=== PATIENT | male | born 1965 | race Caucasian/White ===

== ENCOUNTER → 2017-08-11 | Outpatient (CLI) | payer MEDICARE, OTHER ==
[2017-08-11 16:39] LABS: Blood Urea Nitrogen 13 mg/dL (9-20); Non-African American GFR(MDRD) >60 (>60 ml/min/1.73 sqM)
--- NOTE | 2017-08-11 21:49 | CT ---
EXAMINATION TYPE: CT chest w con DATE OF EXAM: 08/11/2017 COMPARISON: NONE HISTORY: Patient complains of shortness of breath. CT DLP: 1425.8 mGycm Automated exposure control for dose reduction was used. CONTRAST: CT scan of the chest is performed with IV Contrast, patient injected with 100 mL of Omnipaque 300. FINDINGS: There is a patchy nodular infiltrate in the right upper lobe with multiple densities that measure up to 1.5 cm. There are numerous enlarged paratracheal and right bronchial lymph nodes that measure up t o almost 2 cm. There is retained fluid in the thoracic esophagus. There is a gastric sleeve noted. He art size is fairly normal. There is no pericardial effusion. There is no pleural effusion. There are some patchy nodular infiltrate lateral to the left pulmonary hilum. There is coronary artery calcific ation. The bony thorax is intact. The spleen is enlarged. Liver margin is slightly irregular that is suggestive of cirrhosis. Bile duct s are not dilated. Spleen measures 24 cm in length. IMPRESSION: Bilateral nodular pulmonary infiltrates. Mild mediastinal and right bronchial adenopathy . This is more consistent with inflammatory disease. This could relate to sarcoidosis or reactivation tuberculosis. There is probably hepatic cirrhosis. Splenomegaly. There are some varicose veins on th e anterior chest subcutaneous region the could relate to portal venous hypertension. Clinical correla tion is recommended. Enlarged thoracic esophagus probably due to distal obstruction from the gastric sleeve.
== END | disposition home or self-care (01) ==
LOC: RADCTMAIN 16:06
PROVIDERS: ATTEND Family Medicine
DX: R91.8 Other nonspecific abnormal finding of lung field (principal); I86.8 Varicose veins of other specified sites; R59.0 Localized enlarged lymph nodes; K75.3 Granulomatous hepatitis, not elsewhere classified
CPT/HCPCS: 82565; 84520; 71260; 36415; Q9967

== ENCOUNTER → 2018-05-26 | Outpatient (CLI) | payer MEDICARE, OTHER ==
--- NOTE | 2018-05-26 09:01 | FL ---
EXAMINATION TYPE: FL UGI DATE OF EXAM: 05/26/2018 LAP BANDING LIMITED ESOPHAGRAM: CLINICAL HISTORY: History of lap band 10 years ago presents with difficulty eating and vomiting for 3 weeks. [employer] morbid obesity. TECHNIQUE: Limited UGI-esophagram is performed utilizing 10oz of barium. A total of 45 images are sa mimi during procedure. 68 seconds of fluoroscopic time was utilized during procedure. COMPARISON: CT chest August 11, 2017. FINDINGS: Exam noted suboptimal due to patient's large body habitus Pre-procedure cattle brander image shows lap band in stable and satisfactory position in proximal stomach just below the gastroesophageal margarita ction. There is redemonstration of splenomegaly consistent with patient's known history of underlying cirrhosis. The patient then drank oral contrast. There is satisfactory flow of contrast along the course of the esophagus. There is marked delay in flow of contrast along the course of the lap band, there is pool ing of contrast in dilated distal esophagus with suspected internal debris. There is no significant reflux into the proximal to mid esophagus. After 5 minutes still no contrast has passed through lap b and. Patient did not show increased symptoms of nausea or vomiting. IMPRESSION: Severe obstruction at lap band. A Friona level critical message alert has been initiated for Rebecca Ramsey MD via the [employer] Critical Results System on 05/26/2018 8:58 AM. This message alert has been sent to Timo Joiner via the preferences provided by the clinician for the receipt of Radiology Critical Findings. Ariajovanna Overcart ID [id number].
== END | disposition home or self-care (01) ==
LOC: RADFLWHC 07:47
PROVIDERS: ATTEND Internal Medicine Gastroenterology
DX: K95.09 Other complications of gastric band procedure (principal); E66.01 Morbid (severe) obesity due to excess calories
CPT/HCPCS: 74240

== ENCOUNTER 2018-06-10 06:50 | Day surgery (SDC) | payer MEDICARE, OTHER ==
[2018-06-08 10:02] VITALS: BMI 58.7
[~2018-06-10 06:50] MED LIST: LACTATED RINGERS 1,000 ML IV SCH; LIDOCAINE 1% 20 ML VIAL (10MG/ML) FOR IV START INTRADERMA PRN
[2018-06-10 07:43] VITALS: TEMP 98
[2018-06-10 07:46] LABS: Glucose,Whole Blood 298 mg/dL (75-99)
[2018-06-10] MEDS ORDERED: INSULIN ASPART 100 UNIT/ML 1 ML 10 ML VIAL SQ ONE (07:47)
[2018-06-10] MEDS ORDERED: LIDOCAINE 1% INJ 10MG/ML (20 ML MDV) ONE (08:10)
[2018-06-10] MEDS ORDERED: GLYCOPYRROLATE 0.2 MG/ML 2 ML VIAL ONE (08:10)
[2018-06-10] MEDS ORDERED: MIDAZOLAM 2 MG/2 ML VIAL ONE (08:10)
[2018-06-10] MEDS ORDERED: fentaNYL (PF) 50 MCG/ML 2 ML AMP ONE (08:10)
[2018-06-10] MEDS ORDERED: KETAMINE 10 MG/ML 20 ML VIAL ONE (08:10)
[2018-06-10] MEDS ORDERED: PROPOFOL 10 MG/ML 20 ML VIAL IV ONE (08:10)
--- NOTE | 2018-06-10 08:28 | P.PCN ---
Date of Procedure: 06/10/18 Procedure(s) Performed: BRIEF HISTORY: Patient is a 52-year-old, pleasant, male, with history of liver cirrhosis diagnosed in 2011 related to fatty liver disease is scheduled for an endoscopy to screen for esophageal varices. He had history of gastric lap band surgery performed in 2007 with no success. He he was recently evaluated for a gastric sleeve at [facility] and this is part of the presurgical evaluation.. PROCEDURE PERFORMED: Esophagogastroduodenoscopy with biopsy. PREOPERATIVE DIAGNOSIS: History of liver cirrhosis/screening for esophageal varices/presurgical evaluation for bariatric surgery. IV sedation per anesthesia. PROCEDURE: After informed consent was obtained, the patient was brought into the endoscopy unit. IV sedation was administered by Anesthesia under continuous monitoring. Initially the Olympus GIF-140 video endoscope was inserted into the mouth. Esophagus intubated without any difficulty. It was gradually advanced into the stomach and duodenum and carefully examined. The bulb and the second part of the duodenum appeared normal. The scope at this time was withdrawn to the stomach, adequately insufflated with air, and upon careful examination, mucosa of the antrum had severe nodular gastritis and biopsies were done from this area. Mucosa of the body and fundus had changes consistent with portal hypertensive gastropathy. No gastric Varices seen. There was evidence of previous lab and in the gastric pouch was small and appeared normal. The scope was then withdrawn into the esophagus. The GE junction was located at 43 cm from the incisors. The esophagus appeared slightly dilated with small amount of retained food in the esophagus but no erosions or ulcerations seen and the patient tolerated the procedure well. IMPRESSION: 1. Nodular gastritis. 2. Portal hypertensive gastropathy but no evidence of gastric or esophageal varices . 3. Evidence of gastric lap band surgery 4. Slightly dilated esophagus with retained fluid in the esophagus probably from functional distal esophageal obstruction from prior gastric lab band. No mechanical obstruction seen RECOMMENDATIONS: The findings of this examination were discussed with the patient as well as his family. he was advised to follow with the biopsy results. We'll plan a repeat upper endoscopy in 2-3 years to screen for esophageal varices.
[2018-06-10] MEDS ORDERED: IPRATROPIUM-ALBUTEROL 3 ML NEB INHALATION STA (08:46)
[2018-06-10 09:14] LABS: Glucose,Whole Blood 291 mg/dL (75-99)
[2018-06-10 09:27] VITALS: BP 107/59; PULSE 94; RESP 24
== END 2018-06-10 09:43 | disposition home or self-care (01) ==
LOC: ORWHC2ENDO 06:50
PROVIDERS: ATTEND Internal Medicine Gastroenterology
DX: K29.50 Unspecified chronic gastritis without bleeding (principal); K74.69 Other cirrhosis of liver; K76.0 Fatty (change of) liver, not elsewhere classified; K76.6 Portal hypertension; K31.89 Other diseases of stomach and duodenum; K22.8 Other specified diseases of esophagus; Z01.818 Encounter for other preprocedural examination; Z79.4 Long term (current) use of insulin; Z79.899 Other long term (current) drug therapy
CPT/HCPCS: 94640; 88305; 43239; J2250; J2001; J3010; J2704

== ENCOUNTER → 2018-07-01 | Outpatient (CLI) | payer MEDICARE, OTHER ==
[2018-07-01 11:29] LABS: HCT 36.1 % (39.0-53.0); Hypochromasia Slight; MCH 29.7 pg (25.0-35.0); MCHC 33.4 g/dL (31.0-37.0); MCV 88.9 fL (80.0-100.0); Mean Platelet Volume 10.1; RBC 4.06 m/uL (4.30-5.90); RDW 15.9 % (11.5-15.5); WBC 2.9 k/uL (3.8-10.6)
[2018-07-01 11:31] LABS: INR 1.2 (<1.2); Prothrombin Time 11.6 sec (9.0-12.0)
[2018-07-01 11:34] LABS: Platelet Count 50 k/uL (150-450)
[2018-07-01 11:36] LABS: Albumin 3.3 g/dL (3.5-5.0); Calcium 8.6 mg/dL (8.4-10.2); Potassium 4.6 mmol/L (3.5-5.1); Total Protein 5.9 g/dL (6.3-8.2)
== END | disposition home or self-care (01) ==
LOC: LABWHC1 10:40
PROVIDERS: ATTEND Internal Medicine Gastroenterology
DX: K74.60 Unspecified cirrhosis of liver (principal)
CPT/HCPCS: 36415; 80053; 82105; 85027; 85610

== ENCOUNTER → 2018-07-01 | Outpatient (CLI) | payer MEDICARE, OTHER ==
--- NOTE | 2018-07-01 12:46 | CT ---
EXAMINATION TYPE: CT chest wo con DATE OF EXAM: 07/01/2018 COMPARISON: 08/11/2017 HISTORY: Solitary pulmonary nodule CT DLP: 2254.[address] of the chest was performed with lung and mediastinal window settings submitted. The la ck of contrast limits evaluation of the vascular, mediastinal and parenchymal structures including th e upper abdomen. LUNGS: Multiple perihilar nodules again noted with a superimposed infiltrates persist although appear to be improved. As likely on the basis of inflammatory process such as sarcoidosis. Nodules of other etiology certainly not excluded. No pleural effusion or volume loss. MEDIASTINUM/ANIBAL: Thoracic aorta is of normal caliber with limited evaluation given lack of contrast . The heart is not enlarged. No evidence for mediastinal mass. No lymph nodes greater than 1cm. UPPER ABDOMEN: No significant abnormality is seen. OTHER: Cirrhotic liver disease. Splenomegaly. 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 IMPRESSION: 1. Persistent but improved perihilar nodularity with superimposed infiltrates. 2. Cirrhotic liver disease with underlying splenomegaly.
== END ==
LOC: RADCTMAIN 11:02
PROVIDERS: ATTEND Internal Medicine Critical Care Medicine
DX: R91.8 Other nonspecific abnormal finding of lung field (principal)
CPT/HCPCS: 71250